=== PATIENT | male | born 1970 | race Caucasian/White ===

== ENCOUNTER 2016-08-12 05:29 | Emergency (ER) | payer BC ==
[~2016-08-12] VITALS: Ht 167.6 cm; Wt 81.6 kg
[~2016-08-12 05:29] MED LIST: ALPR1TAB2 PO; SERT25TA PO
[2016-08-12] MEDS ORDERED: IV NORMAL SALINE 1000ML BAG 1,000 ML IV ONE (06:30)
[2016-08-12] MEDS ORDERED: KETOROLAC TROMETHAMINE 30 MG/ML SYRINGE. IV ONE (06:30)
[2016-08-12] MEDS ORDERED: ALBUTEROL SULFATE 2.5 MG/3 ML NEBU. NEB ONE (06:30)
[2016-08-12] MEDS ORDERED: ONDANSETRON PF 4 MG/2 ML VIAL. IV ONE (06:30)
[2016-08-12 07:23] LABS: OBC FLU VALID
--- NOTE | 2016-08-12 07:25 | RAD ---
Indication cough for 3 days. A single view of the chest was obtained. No prior imaging of the chest is available. The heart and pulmonary vessels appear normal. The mediastinum has a normal appearance. There is no pleural fluid or pneumothorax. Visualized bony structures appear grossly intact. IMPRESSION: Normal single view of the chest
[2016-08-12] MEDS ORDERED: GUAI120L35 PO (07:38)
[2016-08-12] MEDS ORDERED: AZIT250T PO (07:38)
--- NOTE | 2016-08-12 07:38 | PHYS DOC ---
Past Medical History Past Medical History: Arthritis Additional Past Medical Histor: "prostate problems" Past Surgical History: Other Additional Past Surgical Histo: BACK SURGERY Alcohol Use: Occasionally Drug Use: None Adult General Chief Complaint Chief Complaint: Congestion HPI HPI 46-year-old otherwise healthy male presents with several day history of cough congestion body aches and headache. He states the pain is throbbing in nature behind his eyes. He also states she's had some nausea. He's had decreased by mouth intake over the last few days. He has not had a flu shot this season. [] Review of Systems Review of Systems Constitutional: Denies fever or chills [] Eyes: Denies change in visual acuity, redness, or eye pain [] HENT: Per history of present illness [] Respiratory: Per history of present illness [] Cardiovascular: No additional information not addressed in HPI [] GI: Denies abdominal pain, nausea, vomiting, bloody stools or diarrhea [] : Denies dysuria or hematuria [] Musculoskeletal: Denies back pain or joint pain [] Integument: Denies rash or skin lesions [] Neurologic: Denies headache, focal weakness or sensory changes [] Endocrine: Denies polyuria or polydipsia [] Current Medications Current Medications Current Medications Medications (Trade) Dose Ordered Sig/Sergey Start Time Stop Time Status Last Admin Dose Admin Albuterol Sulfate (Ventolin Neb Soln) 2.5 mg 1X ONCE 08/12/16 06:30 08/12/16 06:31 DC 08/12/16 06:32 2.5 MG Ketorolac Tromethamine (Toradol) 30 mg 1X ONCE 08/12/16 06:30 08/12/16 06:31 DC 08/12/16 06:46 30 MG Ondansetron HCl (Zofran) 4 mg 1X ONCE 08/12/16 06:30 08/12/16 06:31 DC 08/12/16 06:46 4 MG Sodium Chloride (Iv Sodium Chloride 0.9% 1000ml Bag) 1,000 ml @ 1,000 mls/hr 1X ONCE 08/12/16 06:30 08/12/16 07:29 DC 08/12/16 06:44 1,000 MLS/HR Allergies Allergies Allergies Coded Allergies Type Severity Reaction Last Updated Verified Sulfa (Sulfonamide Antibiotics) Allergy Intermediate 10/15/13 Yes Physical Exam Physical Exam Constitutional: Well developed, well nourished, no acute distress, acutely ill [ ] HENT: Normocephalic, atraumatic, bilateral external ears normal, oropharynx moist, no oral exudates, nose normal. [] Eyes: PERRLA, EOMI, conjunctiva normal, no discharge. [] Neck: Normal range of motion, no tenderness, supple, no stridor. [] Cardiovascular:Heart rate regular rhythm, no murmur [] Lungs & Thorax: Bilateral breath sounds clear to auscultation [] Abdomen: Bowel sounds normal, soft, no tenderness, no masses, no pulsatile masses. [] Skin: Warm, dry, no erythema, no rash. [] Back: No tenderness, no CVA tenderness. [] Extremities: No tenderness, no cyanosis, no clubbing, ROM intact, no edema. [] Neurologic: Alert and oriented X 3, normal motor function, normal sensory function, no focal deficits noted. [] Psychologic: Anxious. [] Current Patient Data Vital Signs Vital Signs Date Time Temp Pulse Resp B/P Pulse Ox O2 Delivery O2 Flow Rate FiO2 08/12/16 06:32 98 Room Air 08/12/16 06:21 98.5 76 20 142/93 98.5 Lab Values Laboratory Tests Test 08/12/16 06:46 Influenza Type A Antigen Negative (NEGATIVE) Influenza Type B Antigen Negative (NEGATIVE) EKG EKG [] Radiology/Procedures Radiology/Procedures [] Impressions: Chest x-ray: Normal single view chest. Course & Med Decision Making Course & Med Decision Making Pertinent Labs and Imaging studies reviewed. (See chart for details) [ED course: Evaluation reveals a 46-year-old male with flulike illness. He was given IV fluids Toradol and Zofran during his stay in the emergency department which did help alleviate his symptoms. He states after the fluid he felt much better. I explained to the patient that I felt that most his symptoms are related to a viral illness and that Tylenol Motrin plenty of fluids should help shorten the course of the symptoms.] Dragon Disclaimer Dragon Disclaimer This electronic medical record was generated, in whole or in part, using a voice recognition dictation system. Departure Departure Impression: Primary Impression: Viral syndrome Additional Impression: Upper respiratory infection, viral Disposition: 01 HOME, SELF-CARE Condition: IMPROVED Referrals: HIMANSHU LARSON MD (PCP) Patient Instructions: Upper Respiratory Infection, Adult Additional Instructions: Thank you for allowing us to participate in your care today. Followup with your primary care physician in 3 days if your symptoms do not improve. Return to the emergency department you have any new or concerning findings. This should be evaluated by the primary care physician and any necessary consulting services for continued management within a few days after discharge. Return to emergency room if you have any new or concerning symptoms including but not limited to fever, chills, nausea, vomiting, intractable pain, any new rashes, chest pain, shortness of air, uncontrolled bleeding, difficulty breathing, and/or vision loss. You may have been prescribed medication that can change in your level of thinking and ability to operate machinery. These medications include hydrocodone and Ativan. Also, Benadryl has been known to do this as well. Be sure to check with your pharmacist and ask if the medications you've prescribed can affect your level of consciousness. I recommend not operating heavy machinery or driving while on medication such as these. Scripts Guaifenesin/Codeine Phosphate (Codeine-Guaifen 10-100 mg/5 ml)120 Ml [id number] Ml PO Q8HRS COUGH #120 LIQUID Prov:DANIEL RENAE DO 08/12/16 Azithromycin (Zithromax)250 Mg Tablet1 Pkg PO UD bronchitis #6 TAB Take 2 tablets on day 1 and then 1 tablet each day for the next 4 days as directed Prov:DANIEL RENAE DO 08/12/16 Problem Qualifiers DANIEL RENAE DO Aug 12, 2016 07:38
[2016-08-12 08:03] VITALS: BP 140/85
== END 2016-08-12 08:10 | disposition home or self-care (01) ==
LOC: ER 05:29
DX: B34.9 Viral infection, unspecified (principal); J06.9 Acute upper respiratory infection, unspecified; M19.90 Unspecified osteoarthritis, unspecified site; Z88.2 Allergy status to sulfonamides
CPT/HCPCS: 71010; 87804; 94640; 96361; 96374; 96375; 99285; J1885; J2405; J7030

== ENCOUNTER 2016-08-19 11:55 | Emergency (ER) | payer BC ==
[~2016-08-19] VITALS: Ht 167.6 cm; Wt 81.6 kg
[~2016-08-19 11:55] MED LIST changes: +AZIT250T PO; +GUAI120L35 PO
[2016-08-19 12:02] VITALS: BP 143/94
[2016-08-19] MEDS ORDERED: PROAIR RESPICL90 MCG IH (12:17)
[2016-08-19] MEDS ORDERED: GUAI118L13 PO (12:17)
[2016-08-19] MEDS ORDERED: PRED50TA PO (12:17)
[2016-08-19] MEDS ORDERED: BENZ100C PO (12:17)
--- NOTE | 2016-08-19 12:17 | PHYS DOC ---
Past Medical History Past Medical History: Arthritis Additional Past Medical Histor: "prostate problems" Past Surgical History: Other Additional Past Surgical Histo: BACK SURGERY Alcohol Use: Occasionally Drug Use: None Adult General Chief Complaint Chief Complaint: COUGH HPI HPI Patient is a 46 year old male with history of arthritis who presents today with a productive cough for the last 1 week. Patient was seen in the ED a week ago for the same complaint, he had x-rays done of his chest which were negative. He was discharged home with Z-pack, and guaifenesin with codeine which he completed. He states he followed up with his own PCP who wrote him a prescription for another cough syrup which he was not able to fill it because they did not have it. He presents today complaining of the ongoing cough. Patient denies any fever. Denies any history of smoking. Denies any shortness of breath. Denies any chest pain. Review of Systems Review of Systems Constitutional: See history of present illness Eyes: Denies change in visual acuity, redness, or eye pain [] HENT: Denies nasal congestion or sore throat [] Respiratory: Productive cough Cardiovascular: No additional information not addressed in HPI [] GI: Denies abdominal pain, nausea, vomiting, bloody stools or diarrhea [] : Denies dysuria or hematuria [] Musculoskeletal: Denies back pain or joint pain [] Integument: Denies rash or skin lesions [] Neurologic: Denies headache, focal weakness or sensory changes [] Endocrine: Denies polyuria or polydipsia [] Allergies Allergies Allergies Coded Allergies Type Severity Reaction Last Updated Verified Sulfa (Sulfonamide Antibiotics) Allergy Intermediate 10/15/13 Yes Physical Exam Physical Exam Constitutional: Well developed, well nourished, no acute distress, non-toxic appearance. [] HENT: Normocephalic, atraumatic, bilateral external ears normal, oropharynx moist, no oral exudates, nose normal. [] Eyes: PERRLA, EOMI, conjunctiva normal, no discharge. [] Neck: Normal range of motion, no tenderness, supple, no stridor. [] Cardiovascular:Heart rate regular rhythm, no murmur [] Lungs & Thorax: Bilateral breath sounds clear to auscultation [] Abdomen: Bowel sounds normal, soft, no tenderness, no masses, no pulsatile masses. [] Skin: Warm, dry, no erythema, no rash. [] Back: No tenderness, no CVA tenderness. [] Extremities: No tenderness, no cyanosis, no clubbing, ROM intact, no edema. [] Neurologic: Alert and oriented X 3, normal motor function, normal sensory function, no focal deficits noted. [] Psychologic: Affect normal, judgement normal, mood normal. [] Current Patient Data Vital Signs Vital Signs Date Time Temp Pulse Resp B/P Pulse Ox O2 Delivery O2 Flow Rate FiO2 08/19/16 12:02 98.5 74 20 97 Room Air 98.5 EKG EKG [] Radiology/Procedures Radiology/Procedures [] Course & Med Decision Making Course & Med Decision Making Pertinent Labs and Imaging studies reviewed. (See chart for details) This is a well-appearing 46-year-old male patient who presents today with a productive cough since last week. He was seen in the ED a week ago and was discharged with Z-Fabrice and codeine with promethazine. He followed up with his own PCP last week for the same complaint. I talked to patient at length. His symptoms appears to be viral bronchitis today. He states he's been told he has viral bronchitis. He is a nonsmoker. Discharge him with prednisone for 5 days, albuterol inhaler, Tessalon Perles, and codeine with guaifenesin he is to follow -up with his own PCP in one week. He was provided return precautions and discharged in stable condition. Dragon Disclaimer Dragon Disclaimer This electronic medical record was generated, in whole or in part, using a voice recognition dictation system. Departure Departure Impression: Primary Impression: Viral bronchitis Disposition: 01 HOME, SELF-CARE Condition: STABLE Referrals: HIMANSHU LARSON MD (PCP) Follow up with your doctor in the next 3-7 days Patient Instructions: Acute Bronchitis, [id number] Additional Instructions: You were seen with acute viral bronchitis. The symptoms can last up to 6 weeks. Take the prescribed medicines as ordered. Follow-up with your own doctor in the next 3-7 days. Come back to the emergency room for any concerning symptoms. Scripts Albuterol Sulfate (Proair Respiclick)90 Mcg Aer.pow.[id number] Puff IH PRN Q6HRS PRN SHORTNESS OF BREATH #1 INHALER Prov:MUTUNGASUZIE GIRLS TENNIS COACH 08/19/16 Prednisone 50 Mg Tablet1 Tab PO DAILY #5 TAB Prov:SUZIE BRANDON APRN 08/19/16 Benzonatate (Tessalon Perle)100 Mg Capsule1 Cap PO TID #30 CAP Prov:SUZIE BRANDON APRN 08/19/16 Guaifenesin/Codeine Phosphate (Guaifenesin-Codeine Syrup)118 Ml Liquid5 Ml PO Q6HRS #100 ML Prov:SUZIE BRANDON APRN 08/19/16 SUZIE BRANDON APRN Aug 19, 2016 12:17
== END 2016-08-19 12:21 | disposition home or self-care (01) ==
LOC: ER 11:55
DX: J20.8 Acute bronchitis due to other specified organisms (principal); M19.90 Unspecified osteoarthritis, unspecified site; Z88.2 Allergy status to sulfonamides
CPT/HCPCS: 96372; 99283; 99284-25

== ENCOUNTER 2016-10-09 20:02 | Emergency (ER) | payer BC, OTHER ==
[~2016-10-09 20:02] MED LIST changes: +BENZ100C PO; +GUAI118L13 PO; +PRED50TA PO; +PROAIR RESPICL90 MCG IH
[2016-10-10] MEDS ORDERED: NAPR500T3 PO (08:46)
== END 2016-10-09 20:37 | disposition left against medical advice (07) ==
LOC: ER 20:02
DX: S99.922A Unspecified injury of left foot, initial encounter (principal); Z53.21 Procedure and treatment not carried out due to patient leaving prior to being seen by health care provider; X58.XXXA Exposure to other specified factors, initial encounter; Y93.9 Activity, unspecified; Y92.89 Other specified places as the place of occurrence of the external cause; Y99.8 Other external cause status

== ENCOUNTER 2016-10-10 08:27 | Emergency (ER) | payer OTHER ==
[~2016-10-10] VITALS: Ht 167.6 cm; Wt 83.9 kg
[2016-10-10 08:35] VITALS: BP 144/102
[2016-10-10] MEDS ORDERED: NAPR500T3 PO (08:46)
--- NOTE | 2016-10-10 08:46 | PHYS DOC ---
Past Medical History Past Medical History: Arthritis Additional Past Medical Histor: "prostate problems" Past Surgical History: Other Additional Past Surgical Histo: BACK SURGERY Alcohol Use: Occasionally Drug Use: None Adult General Chief Complaint Chief Complaint: FOOT INJURY PAIN HPI HPI 46-year-old male who's had significant tenderness to the left sole of his foot for the last 3 weeks. He denies any traumatic injury. He denies any redness or swelling to the area. He states the pain is worse when he is weightbearing. He denies any traumatic injury. He's been trying Motrin for his symptoms without relief. Review of Systems Review of Systems Constitutional: Denies fever or chills [] Eyes: Denies change in visual acuity, redness, or eye pain [] HENT: Denies nasal congestion or sore throat [] Respiratory: Denies cough or shortness of breath [] Cardiovascular: No additional information not addressed in HPI [] GI: Denies abdominal pain, nausea, vomiting, bloody stools or diarrhea [] : Denies dysuria or hematuria [] Musculoskeletal: Denies back pain or joint pain [] Integument: Denies rash or skin lesions [] Neurologic: Denies headache, focal weakness or sensory changes [] Endocrine: Denies polyuria or polydipsia [] Allergies Allergies Allergies Coded Allergies Type Severity Reaction Last Updated Verified Sulfa (Sulfonamide Antibiotics) Allergy Intermediate 10/15/13 Yes Physical Exam Physical Exam Constitutional: Well developed, well nourished, no acute distress, non-toxic appearance. [] HENT: Normocephalic, atraumatic, bilateral external ears normal, oropharynx moist, no oral exudates, nose normal. [] Eyes: PERRLA, EOMI, conjunctiva normal, no discharge. [] Neck: Normal range of motion, no tenderness, supple, no stridor. [] Cardiovascular:Heart rate regular rhythm, no murmur [] Lungs & Thorax: Bilateral breath sounds clear to auscultation [] Abdomen: Bowel sounds normal, soft, no tenderness, no masses, no pulsatile masses. [] Skin: Warm, dry, no erythema, no rash. [] Back: No tenderness, no CVA tenderness. [] Extremities: Tenderness to the sole of the left foot with no palpable deformity or swelling, no erythema is noted, no cyanosis, no clubbing, ROM intact, no edema. [] Neurologic: Alert and oriented X 3, normal motor function, normal sensory function, no focal deficits noted. [] Psychologic: Affect normal, judgement normal, mood normal. [] Current Patient Data Vital Signs Vital Signs Date Time Temp Pulse Resp B/P Pulse Ox O2 Delivery O2 Flow Rate FiO2 10/10/16 08:35 98.4 74 18 97 Room Air 98.4 EKG EKG [] Radiology/Procedures Radiology/Procedures [] Course & Med Decision Making Course & Med Decision Making Pertinent Labs and Imaging studies reviewed. (See chart for details) 46-year-old male with tenderness to the plantar surface of his left foot has symptoms that are fairly classic for plantar fasciitis. I'll be prescribing him a course of anti-inflammatories with strict instruction to remain nonweightbearing on the left foot for the next several days and to use deep tissue massage to the area and ice. He'll follow closely in the next several days for his symptoms. Dragon Disclaimer Dragon Disclaimer This electronic medical record was generated, in whole or in part, using a voice recognition dictation system. Departure Departure Impression: Primary Impression: Plantar fasciitis Disposition: HOME, SELF-CARE Admitting Physician: Other Condition: STABLE Referrals: HIMANSHU LARSON MD (PCP) Patient Instructions: Plantar Fasciitis Additional Instructions: Please use your anti-inflammatories as prescribed. Keep the extremity elevated and try deep tissue massage to the area as need. Follow up with your primary doctor in the next 2-3 days for your symptoms. Return to the ER if your pain should worsen despite performing the prescribed. Scripts Naproxen 500 Mg [id number] Mg PO BID #10 Prov:BURKE GUTIERREZ DO 10/10/16 BURKE GUTIERREZ DO Oct 10, 2016 08:46
== END 2016-10-10 09:01 | disposition home or self-care (01) ==
LOC: ER 08:27
DX: M72.2 Plantar fascial fibromatosis (principal); M19.90 Unspecified osteoarthritis, unspecified site; Z88.2 Allergy status to sulfonamides
CPT/HCPCS: 99282

== ENCOUNTER 2017-01-01 23:21 | Emergency (ER) | payer OTHER ==
[~2017-01-01] VITALS: Ht 162.6 cm; Wt 84.4 kg
[~2017-01-01 23:21] MED LIST changes: +NAPR500T3 PO
[2017-01-01] MEDS ORDERED: IV NORMAL SALINE 1000ML BAG 1,000 ML IV SCH (23:55)
[2017-01-01 23:57] LABS: BASO % 0 % (0-3); EOS % 1 % (0-3); HEMATOCRIT 44.5 % (39.0-53.0); HEMOGLOBIN 15.1 g/dL (13.0-17.5); LYMPH # 2.3 x10^3/uL (1.0-4.8); LYMPH % 20 % (24-48); MEAN CORPUSCULAR HEMOGLOBIN 30 pg (25-35); MEAN CORPUSCULAR HGB CONC 34 g/dL (31-37); MEAN CORPUSCULAR VOLUME 88 fL (79-100); MONO % 7 % (0-9); NEUT % 73 % (31-73); PLATELET COUNT 255 x10^3/uL (140-400); RED BLOOD COUNT 5.05 x10^6/uL (4.30-5.70); RED CELL DISTRIBUTION WIDTH 13.5 % (11.5-14.5); WHITE BLOOD COUNT 11.7 x10^3/uL (4.0-11.0)
[2017-01-02] MEDS ORDERED: ONDANSETRON PF 4 MG/2 ML VIAL. IV ONE
[2017-01-02 00:05] LABS: CALCIUM 9.5 mg/dL (8.5-10.1); CREATININE 0.9 mg/dL (0.7-1.3); GFR 90.8; POTASSIUM 3.9 mmol/L (3.5-5.1)
[2017-01-02 00:12] LABS: ALBUMIN 4.2 g/dL (3.4-5.0); ALBUMIN/GLOBULIN RATIO 1.3 (1.0-1.7); TOTAL BILIRUBIN 0.4 mg/dL (0.2-1.0); TOTAL PROTEIN 7.4 g/dL (6.4-8.2)
--- NOTE | 2017-01-02 00:42 | PHYS DOC ---
Past Medical History Past Medical History: Arthritis Additional Past Medical Histor: "prostate problems" Past Surgical History: Other Additional Past Surgical Histo: BACK SURGERY Alcohol Use: Occasionally Drug Use: None Adult General Chief Complaint Chief Complaint: NAUSEA/VOMITING/DIARRHA HPI HPI 46-year-old male with no prior abdominal history now complaining of nausea and vomiting 2 days. Patient multiple episodes of vomiting today. No blood in vomitus. He feels nausea but denies abdominal pain of any kind. No diarrhea. Patient has no prior history of abdominal problems or chronic diagnoses. It's or shaking chills. Normal bowel and bladder habits. Review of Systems Review of Systems Constitutional: Denies fever or chills [] Eyes: Denies change in visual acuity, redness, or eye pain [] HENT: Denies nasal congestion or sore throat [] Respiratory: Denies cough or shortness of breath [] Cardiovascular: No additional information not addressed in HPI [] GI: Denies abdominal pain, nausea, vomiting, bloody stools or diarrhea [] : Denies dysuria or hematuria [] Musculoskeletal: Denies back pain or joint pain [] Integument: Denies rash or skin lesions [] Neurologic: Denies headache, focal weakness or sensory changes [] Endocrine: Denies polyuria or polydipsia [] Current Medications Current Medications Current Medications Medications (Trade) Dose Ordered Sig/Sergey Start Time Stop Time Status Last Admin Dose Admin Ondansetron HCl (Zofran) 4 mg 1X ONCE 01/02/17 00:00 01/02/17 00:01 DC 01/02/17 00:06 4 MG Sodium Chloride 1,000 ml @ 1,000 mls/hr Q1H 01/01/17 23:55 01/02/17 00:54 DC 01/02/17 00:06 1,000 MLS/HR Allergies Allergies Allergies Coded Allergies Type Severity Reaction Last Updated Verified Sulfa (Sulfonamide Antibiotics) Allergy Intermediate 10/15/13 Yes Physical Exam Physical Exam Well appearing male minimally dry mucous membranes. Alert and acute distress. Nontender abdomen completely nonfocal exam. No active vomiting on M.D. evaluation Constitutional: Well developed, well nourished, no acute distress, non-toxic appearance. [] HENT: Normocephalic, atraumatic, bilateral external ears normal, oropharynx moist, no oral exudates, nose normal. [] Eyes: PERRLA, EOMI, conjunctiva normal, no discharge. [] Neck: Normal range of motion, no tenderness, supple, no stridor. [] Cardiovascular:Heart rate regular rhythm, no murmur [] Lungs & Thorax: Bilateral breath sounds clear to auscultation [] Abdomen: Bowel sounds normal, soft, no tenderness, no masses, no pulsatile masses. [] Skin: Warm, dry, no erythema, no rash. [] Back: No tenderness, no CVA tenderness. [] Extremities: No tenderness, no cyanosis, no clubbing, ROM intact, no edema. [] Neurologic: Alert and oriented X 3, normal motor function, normal sensory function, no focal deficits noted. [] Psychologic: Affect normal, judgement normal, mood normal. [] Current Patient Data Vital Signs Vital Signs Date Time Temp Pulse Resp B/P (MAP) Pulse Ox O2 Delivery O2 Flow Rate FiO2 01/01/17 23:37 98.1 93 2 142/96 (111) 98 Room Air 98.1 Lab Values Laboratory Tests Test 01/01/17 23:37 01/02/17 01:34 White Blood Count 11.7 x10^3/uL (4.0-11.0) H Red Blood Count 5.05 x10^6/uL (4.30-5.70) Hemoglobin 15.1 g/dL (13.0-17.5) Hematocrit 44.5 % (39.0-53.0) Mean Corpuscular Volume 88 fL (79-100) Mean Corpuscular Hemoglobin 30 pg (25-35) Mean Corpuscular Hemoglobin Concent 34 g/dL (31-37) Red Cell Distribution Width 13.5 % (11.5-14.5) Platelet Count 255 x10^3/uL (140-400) Neutrophils (%) (Auto) 73 % (31-73) Lymphocytes (%) (Auto) 20 % (24-48) L Monocytes (%) (Auto) 7 % (0-9) Eosinophils (%) (Auto) 1 % (0-3) Basophils (%) (Auto) 0 % (0-3) Neutrophils # (Auto) 8.5 x10^3uL (1.8-7.7) H Lymphocytes # (Auto) 2.3 x10^3/uL (1.0-4.8) Monocytes # (Auto) 0.8 x10^3/uL (0.0-1.1) Eosinophils # (Auto) 0.1 x10^3/uL (0.0-0.7) Basophils # (Auto) 0.0 x10^3/uL (0.0-0.2) Sodium Level 142 mmol/L (136-145) Potassium Level 3.9 mmol/L (3.5-5.1) Chloride Level 103 mmol/L (98-107) Carbon Dioxide Level 29 mmol/L (21-32) Anion Gap 10 (6-14) Blood Urea Nitrogen 15 mg/dL (8-26) Creatinine 0.9 mg/dL (0.7-1.3) Estimated GFR (Cockcroft-Gault) 90.8 BUN/Creatinine Ratio 17 (6-20) Glucose Level 88 mg/dL (70-99) Calcium Level 9.5 mg/dL (8.5-10.1) Total Bilirubin 0.4 mg/dL (0.2-1.0) Aspartate Amino Transferase (AST) 23 U/L (15-37) Alanine Aminotransferase (ALT) 36 U/L (16-63) Alkaline Phosphatase 63 U/L (46-116) Troponin I Quantitative < 0.017 ng/mL (0.000-0.055) Total Protein 7.4 g/dL (6.4-8.2) Albumin 4.2 g/dL (3.4-5.0) Albumin/Globulin Ratio 1.3 (1.0-1.7) Lipase 103 U/L (73-393) Urine Collection Type Unknown Urine Color Yellow Urine Clarity Clear Urine pH 6.0 Urine Specific Huffman 1.020 Urine Protein Negative mg/dL (NEG-TRACE) Urine Glucose (UA) Negative mg/dL (NEG) Urine Ketones (Stick) Negative mg/dL (NEG) Urine Blood Negative (NEG) Urine Nitrite Negative (NEG) Urine Bilirubin Negative (NEG) Urine Urobilinogen Dipstick 0.2 mg/dL (0.2 mg/dL) Urine Leukocyte Esterase Negative (NEG) Urine RBC 0 /HPF (0-2) Urine WBC 1-4 /HPF (0-4) Urine Squamous Epithelial Cells Few /LPF Urine Bacteria 0 /HPF (0-FEW) Urine Mucus Mod /LPF Laboratory Tests 01/01/17 23:37 Laboratory Tests 01/01/17 23:37 EKG EKG [] Radiology/Procedures Radiology/Procedures [] Course & Med Decision Making Course & Med Decision Making Pertinent Labs and Imaging studies reviewed. (See chart for details) Signs and symptoms consistent with suspected viral syndrome with nausea and vomiting with a benign abdominal exam and well-appearing patient with unremarkable vital signs. Full workup including labs. IV fluids and antiemetics administered. Patient appears improved on reexam with no active vomiting. Her workup unremarkable. No further workup or treatment indicated. Patient agrees with outpatient follow-up. Strict return precautions will be given an prescription dispense for Zofran. [] Dragon Disclaimer Dragon Disclaimer This electronic medical record was generated, in whole or in part, using a voice recognition dictation system. Departure Departure Impression: Primary Impression: Vomiting Disposition: HOME, SELF-CARE Condition: STABLE Referrals: HIMANSHU LRASON MD (PCP) Patient Instructions: Nausea and Vomiting Additional Instructions: It is unclear what is causing her nausea and vomiting. Your laboratory results are unremarkable today. Use Zofran under her tongue every 4 hours as needed for nausea and vomiting. Follow-up with your doctor tomorrow for reevaluation and to arrange further workup and treatment as needed. Return immediately for any severe or worsening symptoms. Scripts Ondansetron (ZOFRAN ODT) 4 Mg Tab.rapdis 1 TAB SL Q8HRS, #15 TAB Prov: EDIL GONZALEZ MD 01/02/17 EDIL GONZALEZ MD Jan 02, 2017 00:42
[2017-01-02 01:43] LABS: BILIRUBIN,URINE NEGATIVE (NEG); GLUCOSE,URINE NEGATIVE (NEG); NITRITE,URINE NEGATIVE (NEG); PROTEIN,URINE NEGATIVE (NEG-TRACE); UROBILINOGEN,URINE 0.2 mg/dL (0.2 mg/dL)
[2017-01-02 01:52] LABS: BACTERIA,URINE 0 /HPF (0-FEW); RBC,URINE 0 /HPF (0-2); SQUAMOUS EPITHELIAL CELL,UR FEW /LPF
[2017-01-02] MEDS ORDERED: ONDA4TAB10 SL (02:01)
[2017-01-02 02:30] VITALS: BP 171/75
--- NOTE | 2017-01-02 06:44 | EKG ---
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
--- NOTE | 2017-01-02 07:19 | RAD ---
Portable AP upright view CXR: Clinical indications: Nausea and vomiting and diarrhea.. Comparison: August 12, 2016. Findings: No acute lung infiltrate or pleural effusion or pulmonary edema or lung mass or pneumothorax is seen. The heart size, pulmonary vasculature, mediastinum and both patrick are unremarkable. Impression: No acute radiographic abnormality is seen.
== END 2017-01-02 03:00 | disposition home or self-care (01) ==
LOC: ER 23:21
DX: R11.2 Nausea with vomiting, unspecified (principal); R68.83 Chills (without fever); M19.90 Unspecified osteoarthritis, unspecified site; Z88.2 Allergy status to sulfonamides
CPT/HCPCS: 36415; 71010; 80053; 81001; 83690; 84484; 85027; 93005; 96361; 96374; 99285; J2405; J7030